=== PATIENT | female | born 1990 | race Hispanic/Latino ===

== ENCOUNTER 2017-12-22 11:57 | Emergency (ER) | payer SELFPAY ==
[~2017-12-22] VITALS: Ht 160 cm; Wt 49.9 kg
[2017-12-22] MEDS ORDERED: TRAMADOL HCL 50 MG TAB PO ONE (12:00)
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
[2017-12-22 12:59] VITALS: BP 122/74
== END 2017-12-22 13:01 | disposition home or self-care (01) ==
LOC: ER 11:57
DX: M54.2 Cervicalgia (principal); S16.1XXA Strain of muscle, fascia and tendon at neck level, initial encounter; V43.52XA Car driver injured in collision with other type car in traffic accident, initial encounter; Y92.488 Other paved roadways as the place of occurrence of the external cause
CPT/HCPCS: 72040; 99283